=== PATIENT | male | born 1945 | race Caucasian/White ===

== ENCOUNTER 2021-06-04 15:21 | Emergency (ER) | payer OTHER, MEDICARE ==
[~2021-06-04] VITALS: Ht 180.3 cm; Wt 83.9 kg
[2021-06-04 16:21] LABS: INFLUENZA A ANTIGEN Negative (Negative); INFLUENZA B ANTIGEN Negative (Negative)
[2021-06-04] MEDS ORDERED: APAP W/CODEINE1 TA2 PO (16:36)
[2021-06-04 16:44] VITALS: BP 120/49
== END 2021-06-04 16:44 | disposition home or self-care (01) ==
LOC: M.ERS 15:21
PROVIDERS: Physician Assistant
DX: U07.1 COVID-19 (principal); Z88.0 Allergy status to penicillin

== ENCOUNTER 2021-06-09 06:00 | Emergency (ER) | payer OTHER, MEDICARE ==
[~2021-06-09] VITALS: Ht 180.3 cm; Wt 83.9 kg
[~2021-06-09 06:00] MED LIST: APAP W/CODEINE1 TA2 PO
[2021-06-09 06:46] LABS: ABSOLUTE LYMPHOCYTES 0.7 thou/uL (0.8-5.3); ABSOLUTE MONOCYTES 0.3 thou/uL (0.0-1.2); BASOPHILS 0.4 %; EOSINOPHILS 0.9 %; HEMOGLOBIN 13.9 gm/dL (14.0-18.0); LYMPHOCYTES 35.3 %; MCH 32.5 pg (26.0-34.0); MCV 95.5 fL (80.0-100.0); MPV 8.6 fl. (7.2-11.1); NUCLEATED RBCS 0 /100WBC; PLATELET COUNT* 86 thou/uL (150-400); POLYS 47.4 %; RBC 4.29 mil/uL (4.50-6.00); RDW-CV 12.9 % (10.5-14.5); WBC 2.1 thou/uL (4.0-11.0)
[2021-06-09 07:15] LABS: CALCIUM 8.2 mg/dL (8.5-10.1); CREATININE 1.1 mg/dL (0.6-1.3); POTASSIUM 3.9 mmol/L (3.5-5.1)
--- NOTE | 2021-06-09 09:53 | EKG ---
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 Officer: [facility] : 1945 Requested By: Odalys Lyles Order Number: [id number] : Fly Corbin Measurements Intervals [place] Rate: 51 P: 44 DC: 146 QRS: -1 QRSD: 102 T: 12 QT: 429 QTc: 396 Interpretive Statements Sinus rhythm RSR' in V1 or V2, right VCD No previous ECG available for comparison Electronically Signed On 06-09-2021 9:53:00 DENTURE TECHNICIAN by Fly Corbin [email or web address] <ELECTRONICALLY SIGNED> By: Fly Corbin MD, [facility] 06/09/21 0953 [id number] Fly Corbin MD, [facility] /EPI
[2021-06-09 10:06] VITALS: BP 115/62
== END 2021-06-09 10:06 | disposition home or self-care (01) ==
LOC: M.ERS 06:00
PROVIDERS: Emergency Medicine
DX: U07.1 COVID-19 (principal); Z00.01 Encounter for general adult medical examination with abnormal findings; Z71.1 Person with feared health complaint in whom no diagnosis is made